=== PATIENT | female | born 1985 | race Caucasian/White ===

== ENCOUNTER 2017-01-04 23:47 | Emergency (ER) | payer BC, OTHER ==
[~2017-01-04] VITALS: Ht 175.3 cm; Wt 60.6 kg
[~2017-01-04 23:47] MED LIST: ACET-749 PO; PRENTAB26 PO
[2017-01-04 23:53] VITALS: Ht 175.3 cm; Wt 60.6 kg
[2017-01-05] MEDS ORDERED: hydrOXYzine HCL 25 MG TAB PO STA ×2 (00:10→02:46)
--- NOTE | 2017-01-05 00:14 | EMERGENCY ROOM VISIT NOTE ---
History Report prepared by Penny: Shayy Perez Under the Supervision of: Dr. August Nieves M.D. First contact with patient: 23:58 Chief Complaint: ANXIETY Stated Complaint: PANIC ATTACKS - 1ST EVER History of Present Illness The patient is a 31 year old female who presents to the Emergency Room with complaints of a panic attack occurring yesterday. The patient states that she was stuck on a plane and she does not like small, tight places. The patient had to get on another plane afterwards and states that her panic and fear lasted for 2 straight hours because of this. The patient reports that in the past she was able to work through the fear but that she was unable to this time. She states that she felt better when they got home last night but is unable to stop feeling stressed. She reports that she keeps having panic attacks today. She states that she had panic attacks when she was related to what foods she was eating, which was the first time she experienced having a panic attack. The patient also reports that she had a panic attack 6 months ago getting an MRI. She states that she does not take any medication for her panic attacks and does not attend counseling. She denies having suicidal thoughts or post- depression. The patient also reports having diarrhea but denies having abdominal pain. Source of History: patient Onset: yesterday Position: other (global) Quality: other (panic attack ) Associated Symptoms: + diarrhea, No abdominal pain Review of Systems See HPI for pertinent positives & negatives. A total of 10 systems reviewed and were otherwise negative. Past Medical & Surgical Medical Problems: (1) 40 weeks gestation of (2) Amniotic fluid leaking Surgical Problems: (1) Previous section complicating Family History No pertinent family history stated. Social History Smoking Status: Never Smoker Marital Status: Housing Status: lives with family Current/Historical Medications Scheduled Hydroxyzine Pamoate (Vistaril), 1 CAP PO TID Multivit/Min/Iron/Fol Ac/Pren ( Vitamin), 1 TAB PO DAILY Allergies Coded Allergies: Dairy (Verified Allergy, Unknown, UNKNOWN, 01/05/17) Ketorolac (Verified Allergy, Unknown, HIVES ON FACE AND CHEST, 01/05/17) Tromethamine (Verified Allergy, Unknown, HIVES ON FACE AND CHEST, 01/05/17) Physical Exam Vital Signs Date Time Temp Pulse Resp B/P (MAP) Pulse Ox O2 Delivery O2 Flow Rate FiO2 01/05/17 03:04 68 16 111/71 98 Room Air 01/05/17 03:00 36.3 86 18 111/84 98 01/04/17 23:53 36.3 86 18 111/84 98 Room Air Physical Exam GENERAL: Patient is a healthy-appearing well-nourished female. Crying. HEAD: Normocephalic atraumatic EYES: Ocular movements intact pupils equal and react to light OROPHARYNX mucous membranes are moist no exudates present no erythema or edema present NECK: Supple no nuchal rigidity CHEST: Good equal expansion LUNGS: Clear and equal to auscultation CARDIAC: Normal S1 and S2 ABDOMEN: Soft nontender no guarding BACK: No CVA tenderness EXTREMITIES: No pain upon palpation normal muscle strength in all groups no clubbing cyanosis or edema NEURO: Patient is following commands and answering questions appropriately. Alert and oriented x3 Cranial Nerves 2-12 grossly intact Medical Decision & Procedures Laboratory Results 01/05/17 00:46 Red Blood Count 4.96, Mean Corpuscular Volume 85.5, Mean Corpuscular Hemoglobin 28.6, Mean Corpuscular Hemoglobin Concent 33.5, Mean Platelet Volume 10.1, Neutrophils (%) (Auto) 80.1, Lymphocytes (%) (Auto) 14.3, Monocytes (%) (Auto) 4.6, Eosinophils (%) (Auto) 0.8, Basophils (%) (Auto) 0.0, Neutrophils # (Auto) 7.08, Lymphocytes # (Auto) 1.26, Monocytes # (Auto) 0.41, Eosinophils # (Auto) 0.07, Basophils # (Auto) 0.00 01/05/17 00:46 Test 01/05/17 00:10 01/05/17 00:46 Urine Color YELLOW Urine Appearance CLEAR (CLEAR) Urine pH 8.5 (4.5-7.5) Urine Specific [place] 1.004 (1.000-1.030) Urine Protein NEG (NEG) Urine Glucose (UA) NEG (NEG) Urine Ketones NEG (NEG) Urine Occult Blood NEG (NEG) Urine Nitrite NEG (NEG) Urine Bilirubin NEG (NEG) Urine Urobilinogen NEG (NEG) Urine Leukocyte Esterase NEG (NEG) Urine Test NEG (NEG) Urine Opiates Screen NEG (NEG) Urine Methadone, Qualitative NEG (NEG) Urine Barbiturates NEG (NEG) Urine Phencyclidine (PCP) Level NEG (NEG) Ur Amphetamine/Methamphetamine NEG (NEG) MDMA (Ecstasy) Screen NEG (NEG) Urine Benzodiazepines Screen NEG (NEG) Urine Cocaine Metabolite NEG (NEG) Urine Marijuana (THC) NEG (NEG) White Blood Count 8.84 K/uL (4.8-10.8) Red Blood Count 4.96 M/uL (4.2-5.4) Hemoglobin 14.2 g/dL (12.0-16.0) Hematocrit 42.4 % (37-47) Mean Corpuscular Volume 85.5 fL (80-100) Mean Corpuscular Hemoglobin 28.6 pg (25-34) Mean Corpuscular Hemoglobin Concent 33.5 g/dl (32-36) Platelet Count 177 K/uL (130-400) Mean Platelet Volume 10.1 fL (7.4-10.4) Neutrophils (%) (Auto) 80.1 % Lymphocytes (%) (Auto) 14.3 % Monocytes (%) (Auto) 4.6 % Eosinophils (%) (Auto) 0.8 % Basophils (%) (Auto) 0.0 % Neutrophils # (Auto) 7.08 K/uL (1.4-6.5) Lymphocytes # (Auto) 1.26 K/uL (1.2-3.4) Monocytes # (Auto) 0.41 K/uL (0.11-0.59) Eosinophils # (Auto) 0.07 K/uL (0-0.5) Basophils # (Auto) 0.00 K/uL (0-0.2) RDW Standard Deviation 39.2 fL (36.4-46.3) RDW Coefficient of Variation 12.5 % (11.5-14.5) Immature Granulocyte % (Auto) 0.2 % Immature Granulocyte # (Auto) 0.02 K/uL (0.00-0.02) Anion Gap 10.0 mmol/L (3-11) Est Creatinine Clear Calc Drug Dose 125.5 ml/min Estimated GFR () 138.1 Estimated GFR (Non- 119.1 BUN/Creatinine Ratio 16.2 (10-20) Calcium Level 9.8 mg/dl (8.5-10.1) Total Bilirubin 0.6 mg/dl (0.2-1) Direct Bilirubin 0.2 mg/dl (0-0.2) Aspartate Amino Transf (AST/SGOT) 16 U/L (15-37) Alanine Aminotransferase (ALT/SGPT) 20 U/L (12-78) Alkaline Phosphatase 91 U/L (45-117) Total Protein 7.2 gm/dl (6.4-8.2) Albumin 4.2 gm/dl (3.4-5.0) Thyroid Stimulating Hormone (TSH) 1.440 uIu/ml (0.300-4.500) Ethyl Alcohol mg/dL < 3.0 mg/dl (0-3) Labs reviewed by ED physician. Medications Administered Medications (Trade) Dose Ordered Sig/Neeraj Route Start Time Stop Time Status Last Admin Dose Admin Hydroxyzine HCl (Vistaril Tab) 25 mg NOW STAT PO 01/05/17 00:10 01/05/17 00:15 DC 01/05/17 00:32 25 MG Hydroxyzine HCl (Vistaril Tab) 25 mg NOW STAT PO 01/05/17 02:46 01/05/17 02:47 DC 01/05/17 03:00 25 MG ED Course 0001: Past medical records reviewed. The patient was evaluated in room A5. A complete history and physical examination was performed. 0007: Went over risks and benefits of Vistaril in regards to and she wants to try it. 0010: Ordered Vistaril Tab 25 mg PO. 0246: Ordered Vistaril Tab 25 mg PO. 0249: Upon reexamination the patient is resting comfortably. I discussed results and treatment plan with the patient. She verbalizes agreement and understanding. The patient is ready for discharge. Medical Decision This is a 31-year-old female who presents emergency department complaining of acute anxiety. The patient reports her anxiety is been getting worse over the past month. Upon arrival to emergency department she is tearful. Patient had a very stressful day yesterday. I do believe she is claustrophobic and she had difficulty on an airplane. She was medically cleared by me. I went over the risks and benefits of taking Vistaril while breast-feeding. The patient wishes to try it. She is going to be evaluated by 3 S. The patient denies being suicidal or homicidal. Blood Pressure Screening: Patient was found to be hypotensive. Medication Reconciliation: I attest that I have personally reviewed the patient' s current medication list Differential diagnosis: Etiologies such as mood disorder, infection, hypoglycemia, electrolyte abnormalities, cardiac sources, intracerebral event, toxicologic, neurologic, as well as others were entertained. The patient was further evaluated by 3 S. it was felt that the patient could safely be discharged home. She denied being suicidal or homicidal at time of discharge. She was placed on a prescription for Vistaril. Patient will follow- up with outpatient services but will return if symptoms worsen patient family were in agreement with the treatment plan. Impression Primary Impression: Acute anxiety Scribe Attestation The scribe's documentation has been prepared under my direction and personally reviewed by me in its entirety. I confirm that the note above accurately reflects all work, treatment, procedures, and medical decision making performed by me. Departure Information Dispostion Home / Self-Care Prescriptions Hydroxyzine Pamoate (VISTARIL) 50 Mg Cap 1 CAP PO TID for 10 Days, #30 CAP Prov: August Nieves MD 01/05/17 Referrals Gamal Bond M.D.(DANA) (PCP) Forms HOME CARE DOCUMENTATION FORM, IMPORTANT VISIT INFORMATION, School Instructions, Work Instructions Patient Instructions Anxiety Body Response, Anxiety Disorder Tx Meds, Anxiety Disorder Tx W Therapy, [facility] Additional Instructions Follow up with Pam You have been examined and treated today on an emergency basis only. This is not a substitute for, or an effort to provide, complete comprehensive medical care. It is impossible to recognize and treat all injuries or illnesses in a single emergency department visit. It is therefore important that you follow up closely with Dr Bond. Call as soon as possible for an appointment. Thank you for your time and consideration. I look forward to speaking with you again soon. Please don't hesitate to call us if you have any questions.
[2017-01-05 00:54] LABS: COMPLETE YES; EOS % 0.8 %; HEMATOCRIT 42.4 % (37-47); IG% 0.2 %; LYMPH % 14.3 %; LYMPH ABS # 1.26 K/uL (1.2-3.4); MEAN CELL VOLUME 85.5 fL (80-100); MEAN CORPUSCULAR HEMOGLOBIN 28.6 pg (25-34); MEAN CORPUSCULAR HGB CONC 33.5 g/dl (32-36); MEAN PLATELET VOLUME 10.1 fL (7.4-10.4); MONO % 4.6 %; NEUT % 80.1 %; PLATELET COUNT 177 K/uL (130-400); RED BLOOD COUNT 4.96 M/uL (4.2-5.4); WHITE BLOOD COUNT 8.84 K/uL (4.8-10.8)
[2017-01-05 01:15] LABS: BUN/CREATININE RATIO 16.2 (10-20); CALCIUM 9.8 mg/dl (8.5-10.1); CREATININE 0.61 mg/dl (0.60-1.20); POTASSIUM 3.6 mmol/L (3.5-5.1)
[2017-01-05 01:15] LABS: URINE APPEARANCE CLEAR (CLEAR); URINE BILIRUBIN NEG (NEG); URINE COLOR YELLOW; URINE NITRITE NEG (NEG); URINE PH 8.5 (4.5-7.5); URINE SPECIFIC GRAVITY 1.004 (1.000-1.030); UROBILINOGEN NEG (NEG)
[2017-01-05 01:22] LABS: MANUAL MICROSCOPIC REQUIRED? NO; REVIEW REQ? NO
[2017-01-05 01:26] LABS: THYROID STIMULATING HORMONE 1.44 uIu/ml (0.300-4.500)
[2017-01-05 01:39] LABS: BENZODIAZEPINE, URINE NEG (NEG); COCAINE,URINE NEG (NEG); PHENCYCLIDINE, URINE NEG (NEG)
[2017-01-05] MEDS ORDERED: HYDR50CA2 PO (02:50)
[2017-01-05 03:00] VITALS: TEMP 36.3
[2017-01-05 03:04] VITALS: BP 111/71; PULSE 68; O2SAT 98
== END 2017-01-05 03:00 | disposition home or self-care (01) ==
LOC: C.EDB 23:48 → C.EDA 01-05 03:00
DX: F41.9 Anxiety disorder, unspecified (principal)